=== PATIENT | male | born 1990 | race Caucasian/White ===

== ENCOUNTER 2021-09-05 16:00 | Outpatient (CLI) | payer OTHER, SELFPAY ==
--- NOTE | ~2021-09-05 | XR_ITS ---
XR thoracic spine 2V DATE: 09/05/2021 16:22 INDICATION: Back pain TECHNIQUE: AP, lateral, swimmer views COMPARISON: None FINDINGS: There is mild degenerative spurring of the thoracic spine. No fracture or dislocation or bone destruction. The thoracic pedicles are intact. No paraspinal soft tissue thickening. IMPRESSION: Mild degenerative spurring of the thoracic spine Reviewed, dictated and finalized at location A.
== END 2021-09-05 16:01 | disposition home or self-care (01) ==
PROVIDERS: PCP Family Medicine; Visit Provider Nurse Practitioner Family
DX: M47.814 Spondylosis without myelopathy or radiculopathy, thoracic region (principal)
CPT/HCPCS: 72070